=== PATIENT | female | born 1960 | race Caucasian/White ===

== ENCOUNTER 2018-10-21 18:46 | Emergency (ER) | payer OTHER ==
[2018-10-21] MEDS: DEXAMETHASONE 10 MG/ML 1 ML INJ IM (20:42)
[2018-10-21] MEDS: KETOROLAC 60 MG INJ IM (20:42)
[2018-10-21] MEDS: PROMETHAZINE/DM (CUP) PO (20:45)
[2018-10-21] MEDS: ALBUTEROL 0.083% (NEB) 2.5 MG/3 ML AMP HHN (20:47)
[2018-10-21] MEDS: ALBUTEROL/IPRATROPIUM (NEB) 3 ML AMP HHN (20:48)
== END 2018-10-21 23:10 | disposition home or self-care (01) ==
LOC: FTE 18:46
DX: J30.9 Allergic rhinitis, unspecified (principal); I10 Essential (primary) hypertension; E11.9 Type 2 diabetes mellitus without complications
CPT/HCPCS: 71046; 81025; 93005; 94664; 96372; 99284-25